=== PATIENT | male | born 1980 | race Hispanic/Latino ===

== ENCOUNTER 2018-11-10 01:43 | Emergency (ER) | payer OTHER, SELFPAY ==
[2018-11-10] MEDS ORDERED: Fentanyl 100 MCG/2 ML VIAL ONE (01:51)
[2018-11-10] MEDS ORDERED: Ondansetron PF 4 MG/2 ML Vial ONE (01:51)
[2018-11-10] MEDS ORDERED: Adacel (T-DAP) 0.5 ML SYRINGE ONE (01:51)
[2018-11-10] MEDS ORDERED: Lidocaine 1% w/Epinephrine 1:100K 20 ML VIAL ONE (02:23)
[2018-11-10] MEDS ORDERED: Bacitracin Zinc 1 Packet ONE (02:46)
--- NOTE | 2018-11-10 09:12 | RAD ---
RIGHT FOREARM 2 VIEWS: Date: 11/10/18 HISTORY: Trauma. IMPRESSION: There is soft tissue laceration to mid forearm. No fracture or acute osseous abnormality identified. POS: OFF
== END 2018-11-10 03:11 | disposition home or self-care (01) ==
LOC: ERS 01:43
DX: S51.811A Laceration without foreign body of right forearm, initial encounter (principal); F10.129 Alcohol abuse with intoxication, unspecified; W25.XXXA Contact with sharp glass, initial encounter
CPT/HCPCS: 12034; 90471; 90715; 96365; 96375; J0690; J2001; J2405; J3010